=== PATIENT | female | born 1985 | race Two or more races ===

== ENCOUNTER 2018-12-31 21:57 | Emergency (ER) | payer SELFPAY ==
[~2018-12-31] VITALS: Ht 160 cm; Wt 72.6 kg
[2018-12-31 22:44] LABS: BILIRUBIN,URINE NEGATIVE (NEG); CLARITY,URINE CLEAR; COLOR,URINE YELLOW; NITRITE,URINE NEGATIVE (NEG); PH,URINE 6.5; PROTEIN,URINE NEGATIVE (NEG-TRACE); UROBILINOGEN,URINE 0.2 mg/dL (0.2 mg/dL)
[2018-12-31 22:51] LABS: BACTERIA,URINE MANY /HPF (0-FEW); RBC,URINE OCC /HPF (0-2); SQUAMOUS EPITHELIAL CELL,UR MOD /LPF
[2018-12-31 22:51] LABS: BASO % 0 % (0-3); EOS # 0.1 x10^3/uL (0.0-0.7); EOS % 1 % (0-3); HEMOGLOBIN 12.4 g/dL (12.0-15.5); LYMPH # 2.4 x10^3/uL (1.0-4.8); LYMPH % 24 % (24-48); MEAN CORPUSCULAR HEMOGLOBIN 29 pg (25-35); MEAN CORPUSCULAR HGB CONC 34 g/dL (31-37); MEAN CORPUSCULAR VOLUME 83 fL (79-100); MONO # 0.5 x10^3/uL (0.0-1.1); MONO % 5 % (0-9); NEUT % 69 % (31-73); PLATELET COUNT 206 x10^3/uL (140-400); RED BLOOD COUNT 4.34 x10^6/uL (3.50-5.40); RED CELL DISTRIBUTION WIDTH 14.3 % (11.5-14.5); WHITE BLOOD COUNT 10.1 x10^3/uL (4.0-11.0)
[2018-12-31 23:02] LABS: CALCIUM 8.7 mg/dL (8.5-10.1); CREATININE 0.6 mg/dL (0.6-1.0); GFR 115.1; POTASSIUM 3.6 mmol/L (3.5-5.1)
--- NOTE | 2019-01-01 00:03 | RAD ---
Obstetric ultrasound, transvaginal: Reason for examination: Dark blood vaginal discharge. Transvaginal ultrasound examination was performed. Uterus measures 13 x 8 x 7.1 cm in greatest dimension. Intrauterine gestational sac is identified and shows a normal contour of the sac size measuring 5 x 3.2 x 5.1 cm in greatest dimension. Yolk sac is identified. Single viable intrauterine gestation is present with the pole showing a crown-rump length of 2.6 cm corresponding to gestational age of 9 weeks 3 days. Cardiac activity seen with a rate of 165 bpm. Adequate amniotic fluid is present. The ovaries are not identified. No free fluid is seen in the pelvis. IMPRESSION: Single viable intrauterine gestation with mean gestational age of 9 weeks 3 days and estimated date of confinement of 08/02/2019. Electronically signed by: Roxy Robles MD (01/01/2019 12:00 AM) [id number]
--- NOTE | 2019-01-01 00:40 | PHYS DOC ---
Past Medical History Past Medical History: No Pertinent History (JEREMIAH ACUÑA APRN) Past Surgical History: No Surgical History (JEREMIAH ACUÑA APRN) Alcohol Use: None Drug Use: None (JEREMIAH ACUÑA APRN) Attending Signature I have participated in the care of this patient and I have reviewed and agree with all pertinent clinical information above including history, exam, and recommendations. (JUAN DIEGO ALFREDO MD) Adult General Chief Complaint Chief Complaint: VAGINAL BLEEDING HPI HPI Patient is a 33 year female who presents to the emergency Department today with complaints of dark vaginal bleeding with wiping since yesterday. Patient states that she is currently her last menstrual cycle was on October 25, 2018. She is 7, para 4, with 2 abortions. Patient denies any nausea, vomiting, low back pain, or lower abdominal pain. She states that she has had intermittent pelvic pain for the last 2 weeks. She currently rates her pain a 4 out of 10 on the pain scale she denies any alleviating or exacerbating factors. Patient states she does not have an STRAP MAKER in this area she recently moved from [place]. She has never seen an STRAP MAKER for this . She denies any irregular vaginal discharge prior to the onset of the dark red blood. (JEREMIAH ACUÑA APRN) Review of Systems Review of Systems Constitutional: Denies fever or chills [] GI: Denies abdominal pain, nausea, vomiting, bloody stools or diarrhea [] : Denies dysuria or hematuria; see HPI [] Musculoskeletal: Denies back pain or joint pain [] Integument: Denies rash or skin lesions [] Neurologic: Denies headache Complete systems were reviewed and found to be within normal limits, except as documented in this note. (JEREMIAH ACUÑA APRN) Allergies Allergies Allergies Coded Allergies Type Severity Reaction Last Updated Verified No Known Drug Allergies 12/31/18 No (JUAN DIEGO ALFREDO MD) Physical Exam Physical Exam Constitutional: Well developed, well nourished, no acute distress, non-toxic appearance. [] HENT: Normocephalic, atraumatic, bilateral external ears normal, nose normal. [] Eyes: PERRLA, EOMI, conjunctiva normal, no discharge. [] Neck: Normal range of motion,no stridor. [] Cardiovascular:Heart rate regular rhythm Lungs & Thorax: Respirations even and unlabored, no retractions, no respiratory distress Abdomen: Bowel sounds normal, soft, no tenderness, no masses, no pulsatile masses. [] Skin: Warm, dry, no erythema, no rash. [] Back: No tenderness, no CVA tenderness. [] Extremities: No cyanosis, no clubbing, ROM intact, no edema. [] Neurologic: Alert and oriented X 3, no focal deficits noted. [] Psychologic: Affect normal, judgement normal, mood normal. [] (JEREMIAH ACUÑA APRN) Current Patient Data Vital Signs Vital Signs Date Time Temp Pulse Resp B/P (MAP) Pulse Ox O2 Delivery O2 Flow Rate FiO2 12/31/18 22:37 98.1 85 16 131/67 (88) 99 Room Air 98.1 (JUAN DIEGO ALFREDO MD) Lab Values Laboratory Tests Test 12/31/18 22:09 12/31/18 22:10 12/31/18 22:35 POC Urine HCG, Qualitative Hcg positive (Negative) Urine Collection Type Unknown Urine Color Yellow Urine Clarity Clear Urine pH 6.5 Urine Specific [place] 1.015 Urine Protein Negative mg/dL (NEG-TRACE) Urine Glucose (UA) Negative mg/dL (NEG) Urine Ketones (Stick) Negative mg/dL (NEG) Urine Blood Trace (NEG) Urine Nitrite Negative (NEG) Urine Bilirubin Negative (NEG) Urine Urobilinogen Dipstick 0.2 mg/dL (0.2 mg/dL) Urine Leukocyte Esterase Negative (NEG) Urine RBC Occ /HPF (0-2) Urine WBC 1-4 /HPF (0-4) Urine Squamous Epithelial Cells Mod /LPF Urine Bacteria Many /HPF (0-FEW) Urine Mucus Slight /LPF White Blood Count 10.1 x10^3/uL (4.0-11.0) Red Blood Count 4.34 x10^6/uL (3.50-5.40) Hemoglobin 12.4 g/dL (12.0-15.5) Hematocrit 36.0 % (36.0-47.0) Mean Corpuscular Volume 83 fL (79-100) Mean Corpuscular Hemoglobin 29 pg (25-35) Mean Corpuscular Hemoglobin Concent 34 g/dL (31-37) Red Cell Distribution Width 14.3 % (11.5-14.5) Platelet Count 206 x10^3/uL (140-400) Neutrophils (%) (Auto) 69 % (31-73) Lymphocytes (%) (Auto) 24 % (24-48) Monocytes (%) (Auto) 5 % (0-9) Eosinophils (%) (Auto) 1 % (0-3) Basophils (%) (Auto) 0 % (0-3) Neutrophils # (Auto) 7.0 x10^3/uL (1.8-7.7) Lymphocytes # (Auto) 2.4 x10^3/uL (1.0-4.8) Monocytes # (Auto) 0.5 x10^3/uL (0.0-1.1) Eosinophils # (Auto) 0.1 x10^3/uL (0.0-0.7) Basophils # (Auto) 0.0 x10^3/uL (0.0-0.2) Maternal Serum HCG Beta Subunit 869446 mIU/mL (0-5) H Sodium Level 139 mmol/L (136-145) Potassium Level 3.6 mmol/L (3.5-5.1) Chloride Level 103 mmol/L (98-107) Carbon Dioxide Level 26 mmol/L (21-32) Anion Gap 10 (6-14) Blood Urea Nitrogen 8 mg/dL (7-20) Creatinine 0.6 mg/dL (0.6-1.0) Estimated GFR (Cockcroft-Gault) 115.1 Glucose Level 95 mg/dL (70-99) Calcium Level 8.7 mg/dL (8.5-10.1) Laboratory Tests 12/31/18 22:35 Laboratory Tests 12/31/18 22:35 (JUAN DIEGO ALFREDO MD) EKG EKG [] (JEREMIAH ACUÑA APRN) Radiology/Procedures Radiology/Procedures PROCEDURE: OB TRANSVAG Obstetric ultrasound, transvaginal: Reason for examination: Dark blood vaginal discharge. Transvaginal ultrasound examination was performed. Uterus measures 13 x 8 x 7.1 cm in greatest dimension. Intrauterine gestational sac is identified and shows a normal contour of the sac size measuring 5 x 3.2 x 5.1 cm in greatest dimension. Yolk sac is identified. Single viable intrauterine gestation is present with the pole showing a crown-rump length of 2.6 cm corresponding to gestational age of 9 weeks 3 days. Cardiac activity seen with a rate of 165 bpm. Adequate amniotic fluid is present. The ovaries are not identified. No free fluid is seen in the pelvis. IMPRESSION: Single viable intrauterine gestation with mean gestational age of 9 weeks 3 days and estimated date of confinement of 08/02/2019. [] (JEREMIAH ACUÑA APRN) Course & Med Decision Making Course & Med Decision Making Pertinent Labs and Imaging studies reviewed. (See chart for details) [] (JEREMIAH ACUÑA APRN) Dragon Disclaimer Dragon Disclaimer This electronic medical record was generated, in whole or in part, using a voice recognition dictation system. (JEREMIAH ACUÑA APRN) Departure Departure Impression: Primary Impression: Vaginal bleeding affecting early Disposition: 01 HOME, SELF-CARE Condition: STABLE Referrals: CRISTIANE AVITIA MD Patient Instructions: Vaginal Bleeding During , First Trimester Additional Instructions: Pelvic rest until follow up with OBGYN. Call Dr Cuadra's office in the morning to schedule a follow up in 1-2 days. Return to the ER if symptoms worsen. According to your ultrasound your due date is 08/02/19. JEREMIAH ACUÑA APRN Jan 01, 2019 00:40 JUAN DIEGO ALFREDO MD Jan 01, 2019 00:55
[2019-01-01 00:43] VITALS: BP 106/63
== END 2019-01-01 01:00 | disposition home or self-care (01) ==
LOC: ER 21:57
DX: O46.91 Antepartum hemorrhage, unspecified, first trimester (principal); R10.2 Pelvic and perineal pain; Z3A.09 9 weeks gestation of pregnancy
CPT/HCPCS: 36415; 76817; 80048; 81001; 81025; 84702; 85025; 86900; 86901; 87086; 99285-25